=== PATIENT | female | born 1995 | race Caucasian/White ===

== ENCOUNTER 2024-05-26 10:48 | Outpatient (CLI) | payer OTHER, SELFPAY ==
[2024-05-26 15:47] LABS: Chlamydia DNA Amplified* NOT DETECTED (No Detected); GC DNA Amplified* NOT DETECTED (No Detected)
== END 2024-05-26 10:49 | disposition home or self-care (01) ==
PROVIDERS: Visit Provider Registered Nurse
DX: Z01.419 Encounter for gynecological examination (general) (routine) without abnormal findings (principal); Z11.3 Encounter for screening for infections with a predominantly sexual mode of transmission; Z13.6 Encounter for screening for cardiovascular disorders; Z13.1 Encounter for screening for diabetes mellitus
CPT/HCPCS: 80061; 82947; 86592; 86703; 86803; 87340; 87491; 87591

== ENCOUNTER 2024-07-28 11:09 | Outpatient (CLI) | payer OTHER, SELFPAY ==
--- OUTSIDE RECORDS SUMMARY | 2024-07-28 11:15 | XMS_ITS | Clinical Summary ---
Author Organization [facility] Address [id number] [address] Care Team Providers Care Child Care Leader Name Role Phone Unavailable Primary Care Provider Unavailabl e Source Comments You are receiving this document as you are listed as the primary care provider,follow-up provider, or the patient has been referred to you for consultation.This is in compliance with the Medicare and[facility] EHR Incentive Program,which states Providers who transition their patient to another setting of careor provider of care or refers their patient to another provider of care shouldprovide summary care record for each transition of care or referral. [facility] Allergies Active Allergy Reactions Criticality Noted Date Comments Amoxicillin Rash Low 07/12/2018 Medications Medication Sig Dispensed Refills Start Date End Date Status MULTIPLE VITAMIN ORIndications:Irregular menses Active Active Problems Problem Noted Date Diagnosed Date Irregular menses 07/12/2018 Immunizations Name Administration Dates Next Due Influenza IIV4 (Quadrivalent) 0.5mL (95113) 08/03 Social History Tobacco Use Types Packs/Day Years Used Date Smoking Tobacco: Never Smokeless Tobacco: Never Alcohol Use Standard Drinks/Week Comments Yes 0 (1 standard drink = 0.6 oz pur e alcohol) ONCE A MONTH Sex and Gender Information Value Date Recorded Sex Assigned at Not on file Gender Identity Not on file Sexual Orientation Not on file Last Filed Vital Signs Vital Sign Reading Time Taken Comments Blood Pressure 118/70 07/12/2018 2:16 PM CDT Pulse 81 07/12/2018 2:16 PM CDT Temperature - - Respiratory Rate - - Oxygen Saturation - - Inhaled Oxygen Concentration - - Weight 77.9 kg (171 lb 12.8 oz) 07/12/2018 2:16 PM CDT Height 179.8 cm (5' 10.8) 07/12/2018 2:16 PM CD T Body Mass Index 24.1 07/12/2018 2:16 PM CDT Plan of Treatment Health Maintenance Due Date Last Done Comments Cervical Cancer Screening Due 1997 Hep C Screening (Preventive Services) 1997 HIV Screening (Preventive Services) 2013 Adult Preventive Visit 2015 HepB (1) 2016 COVID-19 Vaccine ( season) 2024 07/16/2021, 06/25/2021 Influenza (#1) 2024 08/28/2022, 07/04, 08/13/2017 DTaP/Tdap/Td (7 - Tdap) 05/09/2025 05/09/20 15, 07/24/2003, 08/14/2000, Additional history exists Zoster/Shingles (1 of 2) 2047 Hib Completed 11/19/2001 IPV (Polio) Completed 07/24/2003, 08/02, 12/17/1999, Additional history exists MCV4 Completed 05/09/2015 HepA Aged Out 07/14/2019, 07/30/2018 No lo nger eligible based on patient's age to complete this topic HPV Vaccine Completed 03/20/2022, 07/03, 07/04/2019, Additional history exists Pneumococcal Aged Out No longer eligi ble based on patient's age to complete this topic [place] [id number] [address]ne Personal/Family Self [address] [place], [place] [address] [id number]
== END 2024-07-28 11:10 | disposition home or self-care (01) ==
PROVIDERS: PCP Registered Nurse; Visit Provider Registered Nurse
DX: R00.2 Palpitations (principal); I45.10 Unspecified right bundle-branch block
CPT/HCPCS: 80048; 82728; 84443; 85379